=== PATIENT | male | born 1990 | race Caucasian/White ===

== ENCOUNTER 2019-04-04 13:16 | Outpatient (CLI) | payer OTHER ==
--- NOTE | 2019-04-04 14:29 | MRI ---
EXAM: Right knee MRI without contrast: HISTORY: Strain of right knee, right knee pain COMPARISON: None FINDINGS: Multiplanar, multisequence MRI examination of the knees performed. No evidence for significant joint effusion. No evidence for significant articular cartilage loss Medial meniscus: Unremarkable. Lateral meniscus: Unremarkable. Anterior cruciate ligament:Status post ACL repair. The replaced tendon is disrupted and not intact. Posterior cruciate ligament: Intact. Medial collateral ligament complex: Intact. Lateral collateral ligament complex: Intact. Quadriceps and patellar tendons: Intact. Extensor mechanism: Unremarkable. Minimal focal increased marrow signal involving the posterior medial and lateral proximal tibial plat eaus, evidence for bone contusion. No evidence for a significant acute lateral femoral condyle osteochondral impaction injury. IMPRESSION: Disrupted replaced ACL tendon, not intact. Small posterior proximal tibial bone contusions.
== END 2019-04-04 13:17 | disposition home or self-care (01) ==
LOC: TBSIIMAG 13:16
PROVIDERS: ATTEND Family Medicine
DX: S86.911D Strain of unspecified muscle(s) and tendon(s) at lower leg level, right leg, subsequent encounter (principal); S80.11XD Contusion of right lower leg, subsequent encounter

== ENCOUNTER 2019-05-11 06:00 | Observation (INO) | payer OTHER ==
[2019-05-10 13:24] VITALS: BMI 24.3
[2019-05-11] MEDS ORDERED: ceFAZolin Sodium (SDC) 2 GM/100 ML BAG ONE (06:16)
[2019-05-11] MEDS ORDERED: Fentanyl 100 MCG/2 ML VIAL ONE ×2 (06:39→06:55)
[2019-05-11] MEDS ORDERED: Midazolam HCl 2 mg/2 ml Vial ONE (06:39)
[2019-05-11] MEDS ORDERED: Ondansetron PF 4 MG/2 ML Vial IVP PRN (06:59)
[2019-05-11] MEDS ORDERED: HYDROcodone/Acetaminophen 10/325 mg Tablet PO PRN ×2 (06:59)
[2019-05-11] MEDS ORDERED: Promethazine HCl 25 MG/ML VIAL IM PRN (06:59)
[2019-05-11] MEDS ORDERED: Ropivacaine 0.2% 550 ML 550 ML NERVE BLCK SCH (06:59)
[2019-05-11] MEDS ORDERED: traMADol HCl 50 MG TAB PO PRN ×2 (06:59)
[2019-05-11] MEDS ORDERED: Fentanyl 100 MCG/2 ML VIAL IV PRN (06:59)
[2019-05-11] MEDS ORDERED: Zolpidem Tartrate 5 MG TAB PO PRN (06:59)
[2019-05-11] MEDS ORDERED: Acetaminophen 500 MG TAB PO PRN (07:41)
[2019-05-11] MEDS ORDERED: diphenhydrAMINE 50 MG CAP PO PRN (07:41)
[2019-05-11] MEDS ORDERED: Morphine 4 MG/ML VIAL SLOW IVP PRN (07:41)
[2019-05-11] MEDS ORDERED: HYDROcodone/Acetaminophen 7.5/325 mg Tablet PO PRN ×2 (07:41)
[2019-05-11] MEDS ORDERED: Milk Of Magnesia 30 ML UDCUP PO PRN (07:41)
[2019-05-11] MEDS ORDERED: Bisacodyl 10 MG SUPP PR PRN (07:41)
[2019-05-11] MEDS ORDERED: Methocarbamol 500 MG TAB PO PRN (07:41)
[2019-05-11] MEDS ORDERED: CEFAZOLIN 2 GM in Premix Bag 1 BAG IVPB SCH (07:45)
--- NOTE | 2019-05-11 10:17 | OP ---
DATE OF PROCEDURE: 05/11/2019 PREOPERATIVE DIAGNOSES: 1. Right knee failed anterior cruciate ligament reconstruction. 2. Retained hardware. POSTOPERATIVE DIAGNOSES: 1. Right knee failed anterior cruciate ligament reconstruction. 2. Retained hardware. PROCEDURES PERFORMED: 1. Right knee exam under anesthesia. 2. Right knee arthroscopy with arthroscopically-assisted anterior cruciate ligament reconstruction using an allograft Achilles tendon. 3. Hardware removal, right leg. REFERRAL COORDINATOR: Wilmar Galan PA-C ESTIMATED BLOOD LOSS: Minimal. COMPLICATIONS: None. ANESTHESIA: He had a general anesthetic as well as a preop block. IMPLANTS: We used a 7 x 25 metal interference screw on the femur. We used a 9 x 23 [employer] interference screw in the tibial tunnel and a bicortical screw with a soft tissue washer as backup on the tibial cortex. INDICATIONS: A 28-year-old male, who is employed by the [employer] and works with [employer], who injured his right knee at work. At this time, he opted to have surgery. DESCRIPTION OF PROCEDURE: After all appropriate consent forms were explained and signed, he was taken back to the operating room and at this time was given general anesthetic. Once the level of anesthesia was appropriate, exam under anesthesia was performed for the right leg and was found to have a positive Scotty and a positive pivot. At this time, a tourniquet was placed on the right thigh. Leg was placed in arthroscopic leg velazquez. The limb was then prepped and draped in standard surgical fashion. The limb was exsanguinated, tourniquet was taken to 300 mmHg. A previous tibial incision was made down through the skin. Bovie was used to coagulate any brisk venous bleeding. We then removed our soft tissue to expose our previously placed screw and soft tissue washer. These were removed without complication. At this time, we removed our visible sutures and we were able to spot our tibial tunnel. At this time, we then made our inferolateral portal, placed scope into the knee joint. A needle localization technique was then used to make a medial working portal. Diagnostic arthroscopy commenced. There was no significant graft in the notch, PCL was intact. At this time, any remnant of the graft was removed with the shaver and the SERFAS energy probe and the femoral tunnel was evaluated. The suture was visualized. At this time, we went to our medial compartment, was probed and found to be intact. Lateral compartment was found to be intact. Gutters were cleaned of any loose bodies and the patellofemoral joint was in good condition. At this time, the graft Achilles allograft had been thawed out and worked on, so that the plug was nearly 20 mm in length and was an 11-mm plug. At this time, we then flexed up our knee and using an [id number] guide, placed a pin up and out the anterolateral thigh. We then first reamed with a 6-mm acorn reamer to get our central debris out followed by the 11-mm reamer for our final tunnel. Tremendous amount of old graft as well as suture was removed and cleaned out the knee joint and out of our femoral tunnel. Once this was done, we then dilated up to 11. At this time, we then placed our tibial guide into the knee at approximately 55 degrees. A pin was placed up into the knee joint. An 11-mm reamer was used to ream our tibial tunnel and again all kind of soft tissue graft material as well as sutures were removed from distally as well as intra-articularly. We thoroughly irrigated out the knee to make sure no material was remnant and once we felt that this was clean, the edges were smoothed off with a rasp and a shanti and this tunnel was also dilated. We then went dry, flexed the knee up one more time, placed our pin up and out the anterolateral thigh, pulling our passing suture up into the knee joint. This was pulled down to the tibial tunnel and used to pull our graft up into the knee. A 7 x 25 metal interference screw was then used to fixate our femoral plug. We then cycled the knee multiple times, making sure that went into full extension and indeed he had nearly 5 degrees of hyperextension with no visible graft impingement. A 9 x 23 [employer] interference screw was then placed up our tibial tunnel for tunnel fixation. We then drilled, tapped, and placed a bicortical screw with a soft tissue washer as backup fixation. The knee was taken again through full range of motion on direct visualization and found to have no impingement. The scope was removed and knee was drained. At this time, excess graft was removed. Vicryl sutures were used to place soft tissue over top of the screw and the hardware. We then used 2-0 Vicryl and nylon sutures to close our portals as well as our incision site. At this time, bulky sterile dressing was applied. Tourniquet was let down. Toes pinked up nicely. The patient was awakened, taken to recovery room in stable condition. All counts were correct at the end of the case and he did receive preoperative IV antibiotics. Job ID: [id number]
[2019-05-11] MEDS: Dextrose 5 %-0.45 % NaCl 1,000 ML IV SCH ×2 (12:47→18:18)
[2019-05-11] MEDS: Famotidine 20 MG TAB PO SCH ×2 (12:48→20:38)
[2019-05-11] MEDS: Ketorolac Tromethamine 30 MG/ML VIAL IVP SCH ×3 (12:48→23:02)
[2019-05-11] MEDS ORDERED: Ropivacaine 0.2% HCl/PF (40 MG/20 ML VIAL) ONE (13:06)
[2019-05-11] MEDS ORDERED: Ropivacaine 0.5% HCl/PF (150 MG/30 ML VIAL) ONE (13:06)
[2019-05-11] MEDS: CEFAZOLIN 2 GM, Admixture Fee 1 EACH in Sodium Chloride 0.9% 100 ML IVPB SCH ×2 (14:52→21:43)
[2019-05-12] MEDS: Dextrose 5 %-0.45 % NaCl 1,000 ML IV SCH (04:00)
[2019-05-12] MEDS: Ketorolac Tromethamine 30 MG/ML VIAL IVP SCH ×2 (05:02→11:52)
[2019-05-12] MEDS ORDERED: Ondansetron PF 4 MG/2 ML Vial ONE (07:40)
[2019-05-12] MEDS ORDERED: PROPOFOL 200 MG/20 ML VIAL ONE (07:40)
[2019-05-12] MEDS ORDERED: Lidocaine 1% PF 5 ML VIAL ONE (07:40)
[2019-05-12] MEDS ORDERED: Ketorolac Tromethamine 30 MG/ML VIAL ONE (07:40)
[2019-05-12] MEDS: Famotidine 20 MG TAB PO SCH (08:58)
[2019-05-12 11:13] VITALS: BP 106/62; TEMP 97.7
== END 2019-05-12 12:20 | disposition home or self-care (01) ==
LOC: SDC 06:00 → SURG A 10:38
PROVIDERS: ADMIT Orthopaedic Surgery; ATTEND Orthopaedic Surgery
PROC: 0MQN4ZZ Repair Right Knee Bursa and Ligament, Percutaneous Endoscopic Approach (ICD-10-PCS; principal; 2019-05-12)
DX: T84.490A Other mechanical complication of muscle and tendon graft, initial encounter (principal); X50.0XXA Overexertion from strenuous movement or load, initial encounter; Y99.0 Civilian activity done for income or pay
CPT/HCPCS: 96365; 96375; 96376; A4306; C1713; G0378; J0690; J1885; J2001; J2250; J2405; J2704; J2795; J3010; J3370; J3490